=== PATIENT | female | born 1945 | race Caucasian/White ===

== ENCOUNTER → 2017-08-23 | Outpatient (CLI) | payer MEDICARE | END | disposition home or self-care (01) | LOC: SHCH 12:54 | PROVIDERS: ATTEND Internal Medicine Cardiovascular Disease | DX: R07.9 Chest pain, unspecified (principal); R06.00 Dyspnea, unspecified | CPT/HCPCS: 93306 ==

== ENCOUNTER → 2022-11-04 | Outpatient (CLI) | payer MEDICARE ==
[~2022-11-04] MED LIST: ACET-2743 PO; ADV500 IH; ALBU90AE2 IH; DOXY100T2 PO; ESCI10TA PO; ETAN50PE3 SQ; FURO20TA4 PO; GABA600T10 PO; GUAI100S13 PO; GUAIATUSSIN PO; HYDR200T82 PO; INSU200I SQ; LEFL10TA19 PO; LIDOCAINE HCL 4% LTA SOL 4 ML VIAL TP ONE; LISI5TAB21 PO; METO-391 PO; MONT-47 PO; MULT-503 PO; PANT40TA PO; PRED20TA3 PO; SOLI5 PO; ZOLP5TAB8 PO; ZONI100C87 PO; [UNRECOGNIZED DRUG - CODE] IH; [UNRECOGNIZED DRUG - CODE] SQ
== END | disposition home or self-care (01) ==
LOC: WHH 08:09
PROVIDERS: ATTEND Family Medicine
DX: T81.89XA Other complications of procedures, not elsewhere classified, initial encounter (principal); T25.021A Burn of unspecified degree of right foot, initial encounter; T31.0 Burns involving less than 10% of body surface; S91.104A Unspecified open wound of right lesser toe(s) without damage to nail, initial encounter; S71.101A Unspecified open wound, right thigh, initial encounter; S81.801A Unspecified open wound, right lower leg, initial encounter; K21.9 Gastro-esophageal reflux disease without esophagitis; J45.909 Unspecified asthma, uncomplicated; M06.9 Rheumatoid arthritis, unspecified; M79.9 Soft tissue disorder, unspecified; X08.8XXA Exposure to other specified smoke, fire and flames, initial encounter; X58.XXXA Exposure to other specified factors, initial encounter; Y83.8 Other surgical procedures as the cause of abnormal reaction of the patient, or of later complication, without mention of misadventure at the time of the procedure; Y92.238 Other place in hospital as the place of occurrence of the external cause; Y93.89 Activity, other specified; Y92.89 Other specified places as the place of occurrence of the external cause; Y99.8 Other external cause status
CPT/HCPCS: 11042; A6196

== ENCOUNTER → 2022-11-09 | Outpatient (CLI) | payer MEDICARE ==
[~2022-11-09] MED LIST changes: -LIDOCAINE HCL 4% LTA SOL 4 ML VIAL TP ONE
== END | disposition home or self-care (01) ==
LOC: RAH 08:10
PROVIDERS: ATTEND Nurse Practitioner Family
DX: M79.9 Soft tissue disorder, unspecified (principal); R22.41 Localized swelling, mass and lump, right lower limb
CPT/HCPCS: 76882

== ENCOUNTER → 2022-11-11 | Outpatient (CLI) | payer MEDICARE ==
[~2022-11-11] MED LIST changes: +LIDOCAINE HCL 4% LTA SOL 4 ML VIAL TP ONE
== END | disposition home or self-care (01) ==
LOC: WHH 08:14
PROVIDERS: ATTEND Family Medicine
DX: T81.89XD Other complications of procedures, not elsewhere classified, subsequent encounter (principal); S91.104D Unspecified open wound of right lesser toe(s) without damage to nail, subsequent encounter; S71.101D Unspecified open wound, right thigh, subsequent encounter; S81.801D Unspecified open wound, right lower leg, subsequent encounter; T25.021D Burn of unspecified degree of right foot, subsequent encounter; J45.909 Unspecified asthma, uncomplicated; K21.9 Gastro-esophageal reflux disease without esophagitis; M79.9 Soft tissue disorder, unspecified; M06.9 Rheumatoid arthritis, unspecified; E78.5 Hyperlipidemia, unspecified; F32.A Depression, unspecified; X58.XXXD Exposure to other specified factors, subsequent encounter; Y83.8 Other surgical procedures as the cause of abnormal reaction of the patient, or of later complication, without mention of misadventure at the time of the procedure
CPT/HCPCS: 11042; A6196